=== PATIENT | female | born 1970 | race African-American/Black ===

== ENCOUNTER 2024-11-19 12:04 | Emergency (ER) | payer OTHER ==
[2024-11-19] MEDS: Orphenadrine 60 MG/2 ML Inj IM ONE (12:25)
[2024-11-19] MEDS: Ketorolac 30 MG/ML SDV IM ONE (12:25)
[2024-11-19] MEDS: Take Home: Cyclobenzaprine 10 MG Tab, 4 Tab Pack PO ONE (12:37)
[2024-11-19] MEDS: Take Home: Ketorolac 10 MG Tab, 4 Tab Pack PO ONE (12:38)
== END 2024-11-19 12:55 | disposition home or self-care (01) ==
LOC: EDBD → CC.ED 12:04
DX: S39.012A Strain of muscle, fascia and tendon of lower back, initial encounter (principal); I10 Essential (primary) hypertension; X50.1XXA Overexertion from prolonged static or awkward postures, initial encounter; Y93.89 Activity, other specified; Y99.0 Civilian activity done for income or pay
CPT/HCPCS: 96372; 99283; A9270; J1885; J2360